=== PATIENT | male | born 1950 | race Caucasian/White ===

== ENCOUNTER 2017-03-31 12:12 | Emergency (ER) | payer MEDICARE, BC ==
[2015-01-06 09:45] VITALS: BMI 44.2
[~2017-03-31 12:12] MED LIST: ALEVE220 MG PO; CLARITIN-D1 TAB.SR . PO; CLARITIN-D1 TAB.SR1 PO
[2017-03-31 12:51] LABS: APPEARANCE CLEAR (CLEAR); BILIRUBIN NEGATIVE (NEGATIVE); COLOR YELLOW (YELLOW); GLUCOSE NEGATIVE (NEGATIVE); KETONE NEGATIVE (NEGATIVE); NITRITE NEGATIVE (NEGATIVE); PROTEIN NEGATIVE (NEGATIVE); SPECIFIC GRAVITY 1.025 (1.005-1.020); UROBILINOGEN NORMAL (NORMAL)
[2017-03-31 14:11] LABS: BASOPHILS 0.2 % (0-2); EOSINOPHILS 0.6 % (0-7); HEMATOCRIT 46.2 % (42.0-54.0); HEMOGLOBIN 15.5 g/dL (13.5-17.5); IMMATURE GRANULOCYTES 0.6 % (0-5); LYMPHOCYTES 10.5 % (15-50); MCH 29.5 pg (26.0-34.0); MCHC 33.5 g/dL (31.0-37.0); MCV 87.8 fL (80.0-100.0); MEAN PLATELET VOLUME 9.1 fL (7.4-10.4); MONOCYTES 9.2 % (2-11); NEUTROPHILS 78.9 % (40-80); PLATELET COUNT 186 10x3/uL (130-400); RBC 5.26 10x6/uL (4.20-6.10); RDW 13.2 % (11.5-14.5)
[2017-03-31 14:24] LABS: ALBUMIN 3.8 g/dL (3.4-5.0); ANION GAP 11.2 mmol/L (8-16); BILIRUBIN - TOTAL 0.45 mg/dL (0.2-1.3); CALCIUM 8.9 mg/dL (8.5-10.1); CARBON DIOXIDE 28.5 mmol/L (21.0-32.0); CREATININE - SERUM 1.1 mg/dL (0.6-1.3); POTASSIUM - SERUM 4.7 mmol/L (3.5-5.1); PROTEIN - SERUM 7.4 g/dL (6.4-8.2)
== END 2017-03-31 16:38 | disposition home or self-care (01) ==
LOC: D.ER 12:12
PROVIDERS: Emergency Medicine
DX: N43.3 Hydrocele, unspecified (principal); N50.3 Cyst of epididymis

== ENCOUNTER 2017-09-19 05:10 | Day surgery (SDC) | payer MEDICARE, BC ==
[2017-09-18 14:33] LABS: HEMATOCRIT 44.9 % (42.0-54.0); HEMOGLOBIN 15.5 g/dL (13.5-17.5); MCH 29.8 pg (26.0-34.0); MCHC 34.5 g/dL (31.0-37.0); MCV 86.2 fL (80.0-100.0); MEAN PLATELET VOLUME 8.9 fL (7.4-10.4); RBC 5.21 10x6/uL (4.20-6.10); RDW 13.4 % (11.5-14.5); WBC 8.3 10x3/uL (4.8-10.8)
[~2017-09-19] VITALS: Ht 182.9 cm; Wt 142.9 kg
--- NOTE | ~2017-09-19 | OP ---
PATIENT NAME: KENDRICK COOPER MEDICAL RECORD: [id number] :50 LOCATION:[facility] ADMISSION DATE: SURGEON: HENOK RAM MD DATE OF OPERATION: 09/19/2017 PREOPERATIVE DIAGNOSES: Medial and lateral meniscus tear of the left knee. POSTOPERATIVE DIAGNOSES: Medial and lateral meniscus tear of the left knee. PROCEDURE: 1. Arthroscopic partial medial meniscectomy. 2. Arthroscopic partial lateral meniscectomy. SURGEON: Henok Ram MD ANESTHESIA: General. INTRAOPERATIVE COMPLICATIONS: None. SUMMARY OF PATHOLOGIC FINDINGS: In accordance with the preoperative MRI and physical examination, the patient had medial meniscus tears of both the medial and lateral side, mildly complex, but complex nonetheless for diagnostic purposes. 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 OPERATIVE SUMMARY IN DETAIL: After obtaining the appropriate preoperative orthopedic surgery consent as well as anesthetic consultation, evaluation and clearance, the patient was brought to the operating room and placed on the operating table in supine position. After general laryngeal mask airway was administered, tourniquet was placed to the proximal aspect of the left lower extremity. Left lower extremity was then prepped and draped in routine sterile fashion. Leg was elevated, exsanguinated and tourniquet inflated to 350 mmHg. Routine inferolateral portal was established followed by superomedial portal and inferomedial portal. Diagnostic arthroscopy did reveal the above findings. Attention was first turned to the medial meniscus. Combination of arthroscopic meniscotome as well as the arthroscopic resector were utilized to debride the meniscus back to stable meniscal elements. This was mostly an undersurface tear. All of the unstable portion of it was taken down with a good meniscal residual. Having completed this, the knee was placed in the [id number] position and under direct visualization of the lateral compartment, again meniscotomes as well as an arthroscopic resector were utilized to shave out the portion of the lateral meniscus, which was approximately the 3 o'clock position. After this was taken down again with good meniscal residual, the knee was insufflated with 30 cc of 0.25% Marcaine with epinephrine. Arthroscopy portals were closed in routine interrupted fashion using 4-0 Prolene. Sterile dressings were applied. Tourniquet was deflated. The patient was awakened, taken to recovery room in stable condition. All final needle and sponge counts were correct. TRANSINT:[id number] Voice Confirmation ID: [id number] DOCUMENT ID: [id number] OPERATIVE REPORT [id number] KENDRICK COOPER MD, HENOK FINCH at 1150 CC: [id number] DICTATION DATE: 09/19/17 0841 [facility]: 09/19/17 1144 [facility] 09/19/17 [id number] [place] [address]
[2017-09-19 05:49] VITALS: BP 152/87; Ht 182.9 cm; Wt 142.9 kg
[2017-09-19] MEDS ORDERED: HYDROCODONE-APA1 TAB PO (08:36)
== END 2017-09-19 10:47 | disposition home or self-care (01) ==
LOC: D.OPS 05:10 → D.PAN 07:30 → D.OPS 07:30 → D.PAN 08:45 → D.OPS 10:47
PROVIDERS: Anesthesiology
DX: S83.232A Complex tear of medial meniscus, current injury, left knee, initial encounter (principal); S83.272A Complex tear of lateral meniscus, current injury, left knee, initial encounter; M94.262 Chondromalacia, left knee; Z01.812 Encounter for preprocedural laboratory examination